=== PATIENT | male | born 1995 | race Caucasian/White ===

== ENCOUNTER 2017-01-09 12:49 | Emergency (ER) | payer SELFPAY ==
[~2017-01-09] VITALS: Ht 182.9 cm; Wt 68.9 kg
--- NOTE | 2017-01-09 14:11 | NUR ---
Patient discharged to home in stable conditon. Written and verbal after care instructions given. Patient verbalizes understanding of instructions.
--- NOTE | 2017-01-09 14:12 | NUR ---
CMS WNL ON LEFT FOOT
== END 2017-01-09 14:12 | disposition home or self-care (01) ==
LOC: ER 12:49
DX: S91.115A Laceration without foreign body of left lesser toe(s) without damage to nail, initial encounter (principal); W45.8XXA Other foreign body or object entering through skin, initial encounter; Y93.51 Activity, roller skating (inline) and skateboarding; Y99.8 Other external cause status; Y92.89 Other specified places as the place of occurrence of the external cause
CPT/HCPCS: 12001; 99283; A4217; A4663; J3490